=== PATIENT | female | born 1980 | race Caucasian/White ===

== ENCOUNTER 2017-11-14 10:48 | Emergency (ER) | payer BC ==
[~2017-11-14] VITALS: Ht 165.1 cm; Wt 113.6 kg
[2017-11-14 10:56] VITALS: Ht 165.1 cm; Wt 113.6 kg
[2017-11-14] MEDS ORDERED: CYMBALTA30 MG PO (10:57)
[2017-11-14 11:19] LABS: BASOPHILS 0.4 % (0-2); EOSINOPHILS 2.2 % (0-7); HEMATOCRIT 38.9 % (36.0-48.0); HEMOGLOBIN 13.6 g/dL (12-16); IMMATURE GRANULOCYTES 0.6 % (0-5); LYMPHOCYTES 38.5 % (15-50); MCH 29.6 pg (26.0-34.0); MCV 84.7 fL (80.0-100.0); MONOCYTES 6.8 % (2-11); NEUTROPHILS 51.5 % (40-80); PLATELET COUNT 317 10x3/uL (130-400); RBC 4.59 10x6/uL (4.00-5.40); RDW 12.8 % (11.5-14.5); WBC 9.8 10x3/uL (4.8-10.8)
[2017-11-14 11:36] LABS: ALBUMIN 3.7 g/dL (3.4-5.0); ALKALINE PHOSPHATASE 93 U/L (46-116); ALT (SGPT) 65 U/L (10-68); BILIRUBIN - TOTAL 0.28 mg/dL (0.2-1.3); CALC OSMOLALITY 275 mosm/kg (275-300); CALCIUM 8.7 mg/dL (8.5-10.1); CARBON DIOXIDE 28.3 mmol/L (21.0-32.0); CHLORIDE - SERUM 104 mmol/L (98-107); CREATININE - SERUM 0.7 mg/dL (0.6-1.3); GLUCOSE 122 mg/dL (74-106); POTASSIUM - SERUM 3.6 mmol/L (3.5-5.1); PROTEIN - SERUM 7.7 g/dL (6.4-8.2); SODIUM 138 mmol/L (136-145); UREA NITROGEN 9 mg/dL (7-18); eGFR NON AFRICAN AMERICAN > 90 mL/min (90-120)
[2017-11-14 11:47] LABS: CKMB 0.4 U/L (0.0-3.6); CREATINE KINASE 65 UL (21-215); TROPONIN-I < 0.017 ng/mL (0.000-0.060)
[2017-11-14 15:10] LABS: CKMB 0.5 U/L (0.0-3.6); CREATINE KINASE 55 UL (21-215)
[2017-11-14 15:13] LABS: TROPONIN-I < 0.017 ng/mL (0.000-0.060)
[2017-11-14 15:57] VITALS: BP 131/68
== END 2017-11-14 15:53 | disposition home or self-care (01) ==
LOC: D.ER 10:48
PROVIDERS: Family Medicine
DX: R07.9 Chest pain, unspecified (principal); G43.909 Migraine, unspecified, not intractable, without status migrainosus

== ENCOUNTER 2018-06-18 07:25 | Day surgery (SDC) | payer BC ==
[2018-06-13 08:56] LABS: BASOPHILS 0.3 % (0-2); HEMOGLOBIN 14.1 g/dL (12-16); IMMATURE GRANULOCYTES 0.2 % (0-5); LYMPHOCYTES 39.3 % (15-50); MCH 30.3 pg (26.0-34.0); MCHC 34.4 g/dL (31.0-37.0); MEAN PLATELET VOLUME 9.5 fL (7.4-10.4); MONOCYTES 4.6 % (2-11); NEUTROPHILS 54.6 % (40-80); PLATELET COUNT 330 10x3/uL (130-400); RBC 4.66 10x6/uL (4.00-5.40); RDW 12.5 % (11.5-14.5); WBC 10.1 10x3/uL (4.8-10.8)
[2018-06-13 09:06] LABS: CALC OSMOLALITY 278 mosm/kg (275-300); CALCIUM 8.6 mg/dL (8.5-10.1); CHLORIDE - SERUM 105 mmol/L (98-107); CREATININE - SERUM 0.8 mg/dL (0.6-1.3); GLUCOSE 97 mg/dL (74-106); POTASSIUM - SERUM 4.1 mmol/L (3.5-5.1); SODIUM 140 mmol/L (136-145); UREA NITROGEN 13 mg/dL (7-18); eGFR NON AFRICAN AMERICAN 85 mL/min (90-120)
[~2018-06-18] VITALS: Ht 165.1 cm; Wt 117.0 kg
[~2018-06-18 07:25] MED LIST: CELEBREX200 MG PO; CELEXA20 MG PO; CYMBALTA30 MG PO; ULTRAM50 MG PO; ZANAFLEX4 MG PO
[2018-06-18 08:23] VITALS: Ht 165.1 cm; Wt 117.0 kg
--- NOTE | 2018-06-18 12:10 | NUR ---
CARE ASSUMED FROM DAGO LANE RN
== END 2018-06-18 14:45 | disposition home or self-care (01) ==
LOC: D.OPS 07:25 → D.PAN 06-19 07:30 → D.OPS 06-19 07:30
PROVIDERS: ATTEND Orthopaedic Surgery
DX: M65.812 Other synovitis and tenosynovitis, left shoulder (principal); M19.012 Primary osteoarthritis, left shoulder; M75.42 Impingement syndrome of left shoulder; Z01.812 Encounter for preprocedural laboratory examination

== ENCOUNTER → 2020-07-20 08:18 | Outpatient (CLI) | payer BC ==
[2018-06-18 08:23] VITALS: BMI 43.0
== END | disposition home or self-care (01) ==
LOC: D.HCCARDIO 08:18
PROVIDERS: ATTEND Internal Medicine Cardiovascular Disease
DX: Z01.810 Encounter for preprocedural cardiovascular examination (principal)

== ENCOUNTER 2020-07-25 07:19 | Day surgery (SDC) | payer BC ==
[~2020-07-25] VITALS: Ht 165.1 cm; Wt 130.2 kg
--- NOTE | ~2020-07-25 | HEMODYNAMI ---
PATIENT:LUIS BURROUGHS MEDICAL RECORD: [id number] : 82 LOCATION:DTOBIAS ADMISSION DATE: 07/25/20 Generatedon:110:48 Patient name: LUIS BURROUGHS Patient #: [id number] SSN: : 1980 Date of study: 07/25/2020 Page: Of Hemodynamic Procedure Report Patient Data Patient Demographics Procedure consent was obtained First Name: LUIS Gender: Female Last Name: MANJEET : 1980 [facility] Initial: AMOR Age: 40 year(s) DELVIS Race: Unknown Patient #: [id number] Additional ID: [id number] Contact details Address: [address] [place] [address] [place]: [place] [facility] [place]: [address] Past Medical History Allergies Allergen Reaction Date Comments Reported Penicillins 07/25/2020 Admission Admission Data Admission Date: 07/25/2020 Admission Time: 7:19 Lab Results Lab Result Date: 07/25/2020 Lab Result Time: 0:00 Biochemistry Name Units Result Min Max BUN mg/dl 14 --(--*-)-- 7 18 Creatinine mg/dl 0.7 --(*---)-- 0.6 1.3 eGFR ml/min 90 --(*---)-- 90 120 NONAFRICAN CBC Name Units Result Min Max Hematocrit % 42 --(*---)-- 42 54 Hemoglobin g/dl 14.5 --(*---)-- 13.5 17.5 Procedure Procedure Types Cath Procedure Diagnostic Procedure C [facility] w/Coronaries Sedation Charges Moderate Sedation 10-24 minutes Procedure Description Procedure Date Procedure Date: 07/25/2020 Procedure Start Time: 10:32 Procedure End Time: 10:45 Procedure Staff Name Function Kenyon Alicea MD Performing Physician Meka Kenney RT Monitor Marnie Ott RT Scrub Maggie Marie RN Nurse Dex Samaniego RN Nurse Procedure Data Cath Procedure Fluoroscopy Diagnostic fluoroscopy Total fluoroscopy Time: 4 time: 4 min min Diagnostic fluoroscopy Total fluoroscopy dose: 626 dose: 626 mGy mGy Contrast Material Contrast Material Type Amount (ml) Isovue 300 46 Entry Location Entry Primary Successful Side Size Upsize Upsize Entry Closure Leblanc ccessful Closure Location (Fr) 1 (Fr) 2 (Fr) Remarks Device Remarks Radial Right 6 Fr Mechanical artery Short Compression Estimated blood loss: 5 ml Diagnostic catheters Device Type Used For End Catheter Placement DIAGNOSTIC Enterprise 110cm 5 Procedure Fr catheter ([id number]) DIAGNOSTIC JL 3.5 5Fr Procedure catheter ([id number]) Procedure Complications No complications Procedure Medications Medication Administration Route Dosage 0.9% NaCl I.V. 100 ml/hr Oxygen etCO2 Nasal cannula 2 l/min Radial Cocktail added to field 1 syringe (Verapamil 2mg/Nitro 400mcg/Heparin 1500units) Lidocaine 2% added to field 20 Heparin Flush Bag added to field 2 bags (1000units/500ml NS) Fentanyl I.V. 50 mcg Versed I.V. 1 mg Fentanyl I.V. 50 mcg Versed I.V. 1 mg Versed I.V. 1 mg Fentanyl I.V. 50 mcg Hemodynamics Rest HGB: 14.5 (g/dl) Heart Rate: 82 (bpm) Pressure Samples Time Site Value (mmHg) Purpose Heart Use Rate(bpm) 10:35 LV 117/10,10 Snapshot 102 10:35 LV 126/12,11 Snapshot 94 Gradients Valve Time Site Site Mean SEP/DFP Peak To Heart Use 1 2 (mmHg) (sec/min) Peak Rate (mmHg) (bpm) Aortic 10:35 LV AO 93 Snapshots Pre Cath Intra NCS Post Cath Vital Signs Time Heart Resp SPO2 etCO2 NIBP (mmHg) Rhythm Pain Sedation Rate (ipm) (%) (mmHg) Status Level (bpm) 10:22:03 82 26 100 35.9 139/89(107) NSR 0 (11) 10(A) , No pain 10:26:32 91 23 100 33.7 144/89(107) NSR 0 (11) 10(A) , No pain 10:31:00 89 16 100 38.1 136/84(101) NSR 0 (11) 10(A) , No pain 10:36:40 104 13 38.2 119/68(102) NSR 0 (11) 10(A) , No pain 10:41:02 96 18 97 38.9 133/74(95) NSR 0 (11) 10(A) , No pain 10:45:29 89 16 99 40.4 126/78(98) NSR 0 (11) 10(A) , No pain Medications Time Medication Route Dose Verified Delivered Reason Notes E ffectiveness by by 10:24:15 0.9% NaCl I.V. 100 Kenyon Dex used for ml/hr NixonBerny Samaniego cork insulator 10:24:24 Oxygen etCO2 2 l/min Kenyon Dex used for Nasal Nixon Aden cork insulator cannula 10:24:31 Radial Cocktail added 1 Kenyon Kenyon used for (Verapamil to syringe [facility] procedure 2mg/Nitro field MD [facility] 400mcg/Heparin 1500units) 10:24:39 Lidocaine 2% added 20ml Kenyon Kenyon for local to vial [facility] anesthetic field MD [facility] 10:24:48 Heparin Flush added 2 bags Kenyon Frederickory used for Bag to [facility] procedure (1000units/500ml field MD [facility] NS) 10:31:45 Fentanyl I.V. 50 mcg Kenyon [address] for St Berny Samaniego RN sedation 10:31:53 Versed I.V. 1 mg Kenyon Dex for St Berny Samaniego RN sedation 10:33:26 Fentanyl I.V. 50 mcg Kenyon Bansaly for St Berny Samaniego RN sedation 10:33:28 Versed I.V. 1 mg [address] Dex for St Berny Samaniego RN sedation 10:36:04 Versed I.V. 1 mg [address] Dex for [facility] Berny Samaniego RN sedation 10:36:07 Fentanyl I.V. 50 mcg Kenyon Dex for Nixon Aden RN sedation Procedure Log Time Note 10:00:47 Dex Samaniego RN sent for patient. Start room use. 10:12:37 Informed consent obtained and on chart 10:14:50 Procedure Status Elective Heart Cath (OP). 10:14:51 Time tracking: Regular hours (M-F 7:00 - 5:00) 10:14:55 Plan of Care:Hemodynamics will remain stable., Cardiac rhythm will remain stable., Comfort level will be maintained., Respiratory function will remain adequate., Patient/ family verbilizes understanding of procedure., Procedure tolerated without complication., Recovers from procedure without complications.. 10:16:37 Patient received from Pre/Post Procedure Room to CCL 1 Alert and oriented. Tansferred to table in Supine position. 10:16:38 Warm blankets applied, and elena hugger turned on for patient comfort. 10:16:38 Correct patient and procedure confirmed by team. 10:16:39 ECG and BP/O2 sat monitors applied to patient. 10:16:45 H&P Date Dictated: 07/11/2020 Within 30 days and on chart., H&P Addendum completed by physician on day of procedure. (MUST COMPLETE FOR ALL OUTPATIENTS). 10:16:50 Patient allergic to Penicillins 10:17:06 Patient not . Patient has had hysterectomy. 10:20:39 Vital chart was started 10:22:42 Baseline sample Acquired. 10:22:45 Rhythm: sinus rhythm 10:22:46 Full Disclosure recording started 10:22:46 Pre-procedure instructions explained to patient. 10:22:46 Pre-op teaching completed and patient verbalized understanding. 10:22:48 Family in patients room. 10:22:49 Patient NPO since Midnight. 10:22:52 Is patient on blood thinner?No 10:22:54 Patient diabetic? No. 10:23:04 Previous problem with sedation/anesthesia? No ? 10:23:05 Snore? Yes 10:23:06 Sleep apnea? Yes 10:23:07 Deviated septum? No 10:23:08 Opens mouth fully? Yes 10:23:08 Sticks out tongue? Yes 10:23:10 Airway obstruction? No ? 10:24:13 Dentures? No ? 10:24:15 0.9% NaCl 100 ml/hr I.V. was administered by Dex Samaniego RN; used for procedure; Verbal order read back and verified. 10:24:17 Pre procedure: right dorsailis pedis pulse 1+ Palpable, but thready & weak; easily obliterated 10:24:19 Modified Jus's test Ulnar < 7 seconds 10:24:21 Patient pain scale 0/10 ?. 10:24:24 Oxygen 2 l/min etCO2 Nasal cannula was administered by Dex Samaniego RN; used for procedure; Verbal order read back and verified. 10:24:27 IV patent on arrival in left forearm with 0.9% NaCl at KVO. 10:24:31 Radial Cocktail (Verapamil 2mg/Nitro 400mcg/Heparin 1500units) 1 syringe added to field was administered by Kenyon Alicea MD; used for procedure; Verbal order read back and verified. 10:24:39 Lidocaine 2% 20ml vial added to field was administered by Kenyon Alicea MD; for local anesthetic; Verbal order read back and verified. 10:24:48 Heparin Flush Bag (1000units/500ml NS) 2 bags added to field was administered by Kenyon Alicea MD; used for procedure; Verbal order read back and verified. 10::52 Lab Result : BUN 14 mg/dl 10:: Lab Result : eGFR NONAFRICAN 90 ml/min 10::52 Lab Result : Creatinine 0.7 mg/dl :: Lab Result : Hemoglobin 14.5 g/dl 10:: Lab Result : Hematocrit 42 % 10::29 Lab results completed and on chart. 10:26:35 Right Radial & Right Groin area was prepped with chlora-prep and draped in sterile fashion 10:26:36 Alarms reviewed by R. N. 10:26:36 Sharps counted by scrub and verified by R.N. 10:29:36 Use device set Radial Dx or PCI 10:29:36 ACIST Syringe (07975) opened to sterile field. 10:29:37 Bag Decanter (2002S) opened to sterile field. 10:29:38 ACIST Hand Control (84664) opened to sterile field. 10:29:38 ACIST Manifold (87156) opened to sterile field. 10:29:39 Tegaderm 4 x 4 (1626W) opened to sterile field. 10:29:40 Medline Cath Pack ([id number]) opened to sterile field. 10:29:40 MBrace Wrist Support ([id number]) opened to sterile field. 10:29:42 NEEDLE Cook 21G 4cm Radial (Y54960) opened to sterile field. 10:29:43 PAULINEALD Guide Wire (502-996) opened to sterile field. 10:29:43 SHEATH 6FR RAIN (4673793) opened to sterile field. 10:30:02 --------ALL STOP TIME OUT------ 10:30:03 Final Timeout: patient, procedure, and site verified with staff and physician. All members of the team are in agreement. 10:30:04 Right Radial & Right Groin site verified by team. 10:30:06 Fire Safety Assessment: A--An alcohol-based skin anteseptic being used preoperatively., C--Open oxygen or nitrous oxide is being used., D--An ESU, laser, or fiber-optic light is being used. 10:30:09 Physical assessment completed. ASA score P 2 - A patient with mild systemic disease as per Kenyon Alicea MD. 10:30:12 1) 90+ Normal kidney functon but urine findings or structural abnormalities or genetic trait point to kidney disease. 10:30:14 Maximum allowable contrast dose (3.7 X eGFR X 0.75)250 ml. 10:30:17 Sedation plan: IV Moderate Sedation Medication:Versed, Fentanyl 10:31:45 Fentanyl 50 mcg I.V. was administered by Dex Samaniego RN; for sedation; Verbal order read back and verified. 10:31:53 Versed 1 mg I.V. was administered by Dex Samaniego RN; for sedation; Verbal order read back and verified. 10:32:42 Procedure started. 10:32:51 Local anesthetic to right radial artery with Lidocaine 2% by Kenyon Alicea MD.INITIAL ACCESS ONLY 10:33:10 Zero performed for pressure channel P1 10:33:16 Zero performed for pressure channel P1 10:33:26 Fentanyl 50 mcg I.V. was administered by Dex Samaniego RN; for sedation; Verbal order read back and verified. 10:33:28 Versed 1 mg I.V. was administered by Dex Samaniego RN; for sedation; Verbal order read back and verified. 10:33:40 A 6 Fr Short sheath was inserted into the Right Radial artery 10:34:44 A DIAGNOSTIC Enterprise 110cm 5 Fr catheter (425443) was advanced over the wire and used for Procedure. 10:35:24 LV gram done using ROMAN 10:35:27 Injector settings: Ml/sec: 5, Volume: 15, 10:35:37 LV hemodynamics recorded. 10:35:46 EF : 60 % 10:36:04 Versed 1 mg I.V. was administered by Dex Samaniego RN; for sedation; Verbal order read back and verified. 10:36:07 Fentanyl 50 mcg I.V. was administered by Dex Samaniego RN; for sedation; Verbal order read back and verified. 10:36:25 RCA angiography performed. 10:36:48 Catheter exchanged over wire. 10:37:22 A DIAGNOSTIC JL 3.5 5Fr catheter ([id number]) was advanced over the wire and used for Procedure. 10:40:31 Catheter exchanged over wire. 10:40:38 unable to engage 10:40:48 GUIDE 6FR XBLAD 3.5 catheter ([id number]) opened to sterile field. 10:40:55 6 Fr XBLAD 3.5 guide catheter was inserted over the wire 10:42:40 LCA angiography performed. 10:42:44 Catheter removed. 10:42:55 ZEPHYR REGULAR TR BAND (642059) opened to sterile field. 10:43:03 Procedure ended.(Physican Out) 10:43:18 Sheath removed intact; hemostasis achieved with Mechanical Compression to the Right Radial artery. 10:43:24 Contrast amount:Isovue 300 46ml. 10:43:26 Maximum allowable dose exceeded? No. 10:43:27 Sharps counted by scrub and verified by R.N. 10:43:31 Fluoroscopy time 04.00 minutes. 10:43:35 Flurop Dose total: 626 10:43:35 Fluoroscopy dose: 626 mGy 10:43:41 Dose Area Product 77880 mGy/cm. 10:43:44 Sharon band inflated with 10cc of air. 10:43:46 Insertion/operative site no bleeding no hematoma. 10:43:48 Post-procedure physical assessment completed. ASA score P 2 - A patient with mild systemic disease as per Kneyon Alicea MD. 10:43:50 Post procedure rhythm: sinus rhythm 10:43:53 Estimated blood loss: 5 ml 10:43:54 Post procedure instruction explained to patient.Patient verbalizes understanding. 10:43:54 Patient needs reinforcement of post procedure teaching. 10:44:10 Procedure type changed to Cath procedure, Diagnostic procedure, LHC, [facility] w/Coronaries, Sedation Charges, Moderate Sedation 10-24 minutes 10:44:42 Procedure and supply charges have been captured, reviewed, submitted and are correct. 10:44:44 Procedure Complication : No complications 10:44:49 Vital chart was stopped 10:44:57 [facility] Findings: mild to moderate CAD (<70%) 10:44:59 Operative report dictated upon procedure completion. 10:44:59 See physician's report for complete and final results. 10:45:02 Report given to Pre/Post Procedure Room. 10:45:06 Patient transfered to Pre/Post Procedure Room with Bed. 10:45:11 Procedure ended. 10:45:11 Full Disclosure recording stopped 10:46:47 End room use (Document Last) 10:47:12 Procedure ended.(Physican Out) Device Usage Item Name Manufacture Quantity Catalog Hospital Part Current Minima l Lot# / Number Charge Number Stock Stock Serial# Code ACIST Acist 1 39528 667697 [id number] [id number] 20 Syringe Medical (75405) Systems Inc Bag Microtek 1 2001S 464082 72663 395415 5 Decanter Medical Inc. () ACIST Hand Acist 1 53554 969929 303211 708229 5 Control Medical (60401) Systems Inc ACIST Acist 1 58887 461574 275089 118739 5 Manifold Medical (83624) Systems Inc Tegaderm 4 3M 1 1626W 960418 349010 783913 5 x 4 (1626W) Medline Medline 1 [id number] 007017 36257 504947 5 Cath Pack ([id number]) MBrace Advanced 1 140-0250-00 703893 16531 764650 5 Wrist Vascular Support Dynamics ([id number]) NEEDLE GT Energy Medical 1 [id number] 090314 379198 948505 5 21G 4cm Radial (E74035) EMERALD Cardinal 1 502-455 381692 613083 163369 5 Guide Wire Health (502-455) SHEATH 6FR Cardinal 1 2422495 630294 1978336 829758 5 [facility] (1484923) DIAGNOSTIC Terumo 1 405013 918201 187086 970567 5 Enterprise 110cm 5 Fr catheter (881210) DIAGNOSTIC Cardinal 1 [id number] 327648 827605 673836 5 JL 3.5 5Fr Health catheter (065527P) GUIDE 6FR Cardinal 1 13492662 346604 703612 480394 10 XBLAD 3.5 Health catheter (16601556) ZEPHYR Cardinal 1 047330 307635 7769353 912113 5 REGULAR TR Health BAND (022339) Signature Audit [place] Stage Time Signature Unsigned Intra-Procedure 07/25/2020 Meka Kenney 10:46:57 AM RT(R) Intra-Procedure 07/25/2020 Maggie Marie RN 10:47:12 AM Intra-Procedure 07/25/2020 Kenyon Steward 10:48:26 AM Berny [facility] [address] [place] [address]
[2020-07-25] MEDS ORDERED: CELEXA40 MG PO (08:42)
[2020-07-25] MEDS ORDERED: LISINOPRIL5 MG PO (08:44)
[2020-07-25 08:54] VITALS: BP 129/84; Ht 165.1 cm; Wt 130.2 kg
[2020-07-25 09:11] LABS: BASOPHILS 1.2 % (0-2); EOSINOPHILS 1.8 % (0-7); HEMOGLOBIN 14.5 g/dL (12-16); LYMPHOCYTES 42.3 % (15-50); MCH 29.8 pg (26.0-34.0); MCHC 34.4 g/dL (31.0-37.0); MCV 86.7 fL (80.0-100.0); MEAN PLATELET VOLUME 8.5 fL (7.4-10.4); MONOCYTES 4.1 % (2-11); NEUTROPHILS 50.6 % (40-80); PLATELET COUNT 316 10x3/uL (130-400); RBC 4.84 10x6/uL (4.00-5.40); RDW 12.8 % (11.5-14.5); WBC 9.6 10x3/uL (4.8-10.8)
[2020-07-25 09:24] LABS: ALT (SGPT) 58 U/L (10-68); CALC OSMOLALITY 286 mosm/kg (275-300); CALCIUM 9.5 mg/dL (8.5-10.1); CARBON DIOXIDE 27.4 mmol/L (21.0-32.0); CHLORIDE - SERUM 105 mmol/L (98-107); CHOL - HDL RATIO 3.6 ratio (2.3-4.1); CHOLESTEROL, TOTAL 174 mg/dL (0-200); CREATININE - SERUM 0.7 mg/dL (0.6-1.3); GLUCOSE 145 mg/dL (74-106); HDL CHOLESTEROL 48 mg/dL (32-96); LDL CHOLESTEROL 106 mg/dL (0-100); LDL-HDL RATIO 2.2 ratio (1.5-3.5); POTASSIUM - SERUM 3.7 mmol/L (3.5-5.1); SODIUM 142 mmol/L (136-145); TRIGLYCERIDE 104 mg/dL (30-200); UREA NITROGEN 14 mg/dL (7-18); eGFR NON AFRICAN AMERICAN > 90 mL/min (90-120)
--- NOTE | 2020-07-25 10:54 | NUR ---
PT ARRIVED BY STRETCHER. PLACED ON MONITORS. ASSESSMENT COMPLETED. VSS AT THIS TIME. CALL LIGHT WITHIN REACH.
--- NOTE | 2020-07-25 11:10 | NUR ---
RIGHT WRIST Z BAND IN PLACE. NO BLEEDING/HEMATOMA NOTED. VSS AT THIS TIME. CALL LIGHT WITHIN REACH.
--- NOTE | 2020-07-25 11:40 | NUR ---
PT RESTING COMFORTABLY. VSS AT THIS TIME. CALL LIGHT WITHIN REACH. NO NEEDS. RIGHT WRIST Z BAND IN PLACE. NO BLEEDING/HEMATOMA NOTED.
--- NOTE | 2020-07-25 12:00 | NUR ---
2cc OF AIR REMOVED FROM Z BAND. NO BLEEDING/HEMATOMA NOTED. CALL LIGHT WITHIN REACH. VSS AT THIS TIME. NO NEEDS. DENIES NAUSEA/PAIN.
--- NOTE | 2020-07-25 12:15 | NUR ---
3cc OF AIR REMOVED FROM Z BAND. NO BLEEDING/HEMATOMA NOTED.
--- NOTE | 2020-07-25 12:30 | NUR ---
5cc OF AIR REMOVED FROM Z BAND. NO BLEEDING/HEMATOMA NOTED.
--- NOTE | 2020-07-25 12:45 | NUR ---
Z BAND REMOVED AND DRESSING APPLIED. NO BLEEDING/HEMATOMA NOTED. RIGHT WRIST BOARD IN PLACE. PIV D/C'D WITH CATH TIP INTACT. TOLERATED WELL. DISCUSSED DISCHARGE INSTRUCTIONS WITH PT. SHE VOICED UNDERSTANDING. PT INSTRUCTED TO GET DRESSED AT THIS TIME. CALL LIGHT WITHIN REACH. NO ASSISTANCE NEEDED.
--- NOTE | 2020-07-25 13:00 | NUR ---
RIGHT WRIST DRESSING C/D/I. NO S/S OF HEMATOMA NOTED. PT TAKEN OUT TO VEHICLE BY WHEELCHAIR. NO S/S OF DISTRESS NOTED. ALL BELONGINGS AND PAPERWORK IN HAND.
--- NOTE | 2020-07-26 14:07 | OP ---
PATIENT NAME: LUIS BURROUGHS MEDICAL RECORD: [id number] :82 LOCATION:D.CAT ADMISSION DATE: SURGEON: SERENA STOUT MD DATE OF OPERATION: 07/25/2020 PROCEDURE: Left heart catheterization, selective coronary angiography, right radial approach. CATHETERS: Radial sheath, [place] catheters as well as an XB LAD catheter to engage the left system. The procedure was well tolerated. The patient was returned to the [place]. Sheath removed. TR band was placed. FINDINGS: Left ventriculography; 30-degree ROMAN view; normal wall motion and normal systolic function. CORONARY ANATOMY: LEFT MAIN: Left main is free of disease. LAD: Free of disease in the diagonal system. CIRCUMFLEX: Free of disease in the marginal system. RIGHT CORONARY ARTERY: Dominant right artery, gives rise to PDA, free of disease. IMPRESSION: Normal left ventricular systolic function. Normal coronary anatomy. 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
== END 2020-07-25 13:00 | disposition home or self-care (01) ==
LOC: D.CATH 07:19
PROVIDERS: ATTEND Internal Medicine Interventional Cardiology
DX: I10 Essential (primary) hypertension (principal); R06.09 Other forms of dyspnea; R94.31 Abnormal electrocardiogram [ECG] [EKG]; Z01.810 Encounter for preprocedural cardiovascular examination